=== PATIENT | male | born 1995 | race African-American/Black ===

== ENCOUNTER 2018-04-15 17:05 | Emergency (ER) | payer OTHER ==
[~2018-04-15] VITALS: Ht 180.3 cm; Wt 83.5 kg
[~2018-04-15 17:05] MED LIST: CODE-54 PO; METH4TAB PO; OFLO5DRO7 EACH EAR
[2018-04-15] MEDS ORDERED: KETOROLAC 60 MG/2 ML VIAL IM ONE (17:30)
[2018-04-15] MEDS ORDERED: ORPHENADRINE 60 MG/2 ML (NORFLEX) AMP IM ONE (17:30)
--- NOTE | 2018-04-15 17:49 | ED Back Pain ---
General Chief Complaint: Back Problems Stated Complaint: BACK PAIN POST INJ 03/28 Nursing Triage Note: SUFFERED A FOOTBALL INJURY ON 03/28/18 TO HIS LOWER BACK AND LEFT FLANK. TWO DAYS AGO THE PAIN BEGAN TO WORSEN. REPORTS CONSTANT DULL PAIN Nursing Sepsis Screen: No Definite Risk Source of Information: Patient, Family (mother) Exam Limitations: No Limitations History of Present Illness Date Seen by Provider: Apr 15, 2018 Time Seen by Provider: 17:30 Initial Comments Patient is a 22-year-old male who presents to the emergency room with complaints of a football injury on 03/28/18 to his left lower back causing pain to radiate to his left flank. He reports that 2 days ago the pain became worse. He reports that he has continued to practice since the injury. He denies any saddle paresthesia, numbness or tingling, loss of bowel or bladder. Location: Lumbar Spine Timing/Duration: Other (18 days) Pain/Injury Location: Back Radiation: Other (left flank) Associated Symptoms: muscle spasms; No fever, No weakness, No numbness in legs/ feet, No tingling in legs/feet, No sensory/motor loss; lower back pain; No loss of bladder control, No loss of bowel control Allergies and Home Medications Allergies Coded Allergies: No Known Drug Allergies (Unverified , 05/13/10) Home Medications Cyclobenzaprine HCl 10 Mg Tablet, 10 MG PO Q8H Prescribed by: MANNY MENDOZA on 04/15/18 175 Ofloxacin 5 Ml Drops, 5 ML EACH EAR BID Prescribed by: ALANNA ELLIOTT on 03/11/13 2302 Prednisone 20 Mg Tab, 40 MG PO DAILY Prescribed by: MANNY MENDOZA on 04/15/18 175 Patient Home Medication List Home Medication List Reviewed: Yes Review of Systems Constitutional: see HPI; No chills, No fever Musculoskeletal: see HPI, back pain All Other Systems Reviewed Negative Unless Noted: Yes Past Ydghcpk-Ewxnqj-Kryxiw Hx Past Med/Social Hx: Reviewed Nursing Past Med/Soc Hx Patient Social History Recent Foreign Travel: No Contact w/Someone Who Travel: No Recent Infectious Disease Expo: No Seasonal Allergies Seasonal Allergies: No Past Medical History Surgeries: No Respiratory: No Cardiac: No Neurological: No Sexually Transmitted Disease: No Gastrointestinal: No Musculoskeletal: Yes Back Injury Endocrine: No HEENT: No Cancer: No Psychosocial: No Integumentary: No Blood Disorders: No Family Medical History Reviewed Nursing Family Hx Physical Exam Vital Signs Vital Signs - First Documented 04/15/18 17:10 Temp 97.9 Pulse 67 Resp 20 B/P (MAP) 142/79 (100) Pulse Ox 97 O2 Delivery Room Air Capillary Refill : Less Than 3 Seconds Height, Weight, BMI Height: 5'11.00" Weight: 184lbs. oz. 83.411796pq; BMI Method:Stated General Appearance: No Apparent Distress, WD/WN HEENT: PERRL/EOMI, TMs Normal, Normal ENT Inspection, Pharynx Normal Neck: Full Range of Motion, Normal Inspection, Non Tender, Supple Cardiovascular: Regular Rate, Rhythm, No Edema, No Gallop, No JVD, No Murmur, Normal Peripheral Pulses Respiratory: Chest Non Tender, Lungs Clear, Normal Breath Sounds, No Accessory Muscle Use, No Respiratory Distress, Accessory Muscle Use Back: Normal Inspection, CVA Tenderness (L), Vertebral Tenderness (lumbar) Neurologic/Psychiatric: Alert, Oriented x3, No Motor/Sensory Deficits Skin: Normal Color, Warm/Dry Progress/Results/Core Measures Results/Orders My Orders Orders - REJIMANNY Ketorolac Injection (Toradol Injection) (04/15/18 17:30) Orphenadrine Injection (Norflex Injectio (04/15/18 17:30) Vital Signs/I&O 04/15/18 17:10 Temp 97.9 Pulse 67 Resp 20 B/P (MAP) 142/79 (100) Pulse Ox 97 O2 Delivery Room Air Blood Pressure Mean: 100 Progress Progress Note : Time: 17:26 Progress Note I have seen and evaluated the patient. 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 Huber and he recommends doing an outpatient MRI and having the images sent to him. I did inform the patient and his mother and they agree with plans of care, plans for discharge, return precautions were given. Departure Impression Primary Impression: Back pain Disposition: 01 HOME, SELF-CARE Condition: Stable/Unchanged Departure-Patient Inst. Decision time for Depature: 17:48 Referrals: [facility] (PCP/Family) Primary Care Physician Patient Instructions: Lumbar Muscle Strain (DC), Low Back Pain (DC) Add. Discharge Instructions: Take medications as directed. Call first thing Monday to schedule your appointment for your MRI. He may use ibuprofen and Tylenol as directed by the bottle for pain. Follow-up with Dr. Huber within 1 week for recheck. Follow-up with your primary care provider within 1 week for recheck. Do not play sports until cleared by Dr. Huber. All discharge instructions reviewed with patient and/or family. Voiced understanding. Scripts Prednisone (Prednisone) 20 Mg Tab 40 MG PO DAILY for 4 Days, #8 TAB Prov: MANNY MENDOZA 04/15/18 Cyclobenzaprine HCl (Cyclobenzaprine HCl) 10 Mg Tablet 10 MG PO Q8H, #14 TAB Prov: MANNY MENDOZA 04/15/18 MANNY MENDOZA Apr 15, 2018 17:49
[2018-04-15] MEDS ORDERED: PRD20T PO (17:51)
[2018-04-15] MEDS ORDERED: CYCL10TA9 PO (17:51)
[2018-04-15 18:29] VITALS: BP 139/82
== END 2018-04-15 18:29 | disposition home or self-care (01) ==
LOC: EDUNIT# 17:05 → ER 17:06
DX: M54.5 Low back pain (principal); Z79.52 Long term (current) use of systemic steroids; W03.XXXA Other fall on same level due to collision with another person, initial encounter; Y93.61 Activity, american tackle football
CPT/HCPCS: 96372; 99281; 99284

== ENCOUNTER → 2018-04-20 | Outpatient (CLI) | payer OTHER ==
[~2018-04-20] MED LIST changes: +CYCL10TA9 PO; +PRD20T PO
--- NOTE | 2018-04-20 09:28 | Diagnostic Imaging Report ---
CLINICAL INDICATION: Patient with football injury from 03/28/2018. Patient has left lower back pain since. Patient made a tackle and hit left lower back on a helmet. EXAMINATION: MRI of the lumbar spine performed without IV contrast. Sagittal T2, sagittal T1, sagittal stir, and axial T2. COMPARISON: None. FINDINGS: Five lumbar type vertebra are identified. Lumbar spine has normal alignment with no fracture or dislocation. The lumbar vertebra have normal T1 and T2 signal. The visualized portions of the distal spinal cord, conus medullaris, and cauda equina have normal anatomic appearance. The conus medullaris tip is seen at the T12-L1 intervertebral level. There is a small amount of high T2 signal within the posterior aspect of left psoas muscle seen at the L4 and L5 levels, best seen on the axial T2 sequence. Otherwise there is no other significant paraspinal soft tissue abnormality. There are chronic Schmorl's nodes seen involving the L1-L2 and L2-L3 levels. T12-L1: There is a small right paracentral disc protrusion/herniation which causes minimal impression upon the thecal sac. There is mild right neural foramen narrowing. L1-L2: There is a subtle left paracentral disc bulge. L2-L3: There is a subtle left paracentral disc bulge. There is mild loss of intervertebral disc height. L3-L4: There is a small disc bulge in the far right lateral region. L4-L5: Unremarkable. L5-S1: There is a small to moderate-sized broad posterior disc protrusion/herniation and moderate loss of intervertebral disc height. There are low T2 degenerative disc signal changes. There are disc spurs extending into the right foraminal region causing [id number] right neural foramen narrowing. There is no significant central canal narrowing. There is concern for possible impingement upon the non-exited left S1 nerve root more so than the right S1 nerve root. IMPRESSION: 1: There is L5-S1 small to moderate-sized broad posterior disc herniation with right subarticular disc spurs. There is associated [id number] right neural foramen narrowing and concern for impingement upon the bilateral non-exiting S1 nerve roots (left side more than the right). 2: There is a small T12-L1 right paracentral disc herniation which causes minimal impression upon the thecal sac and mild right neural foramen narrowing. 3: There are small disc bulges at the L1-L2, L2-L3, and L3-L4 levels, as described above. 4: There is a small area of high T2 signal within the posterior left psoas muscle involving the lower lumbar spine, as described above. This may represent muscle strain/injury. Dictated by: Dictated on workstation # [id number]
== END ==
LOC: RAD 08:01
PROVIDERS: ATTEND Nurse Practitioner
DX: S39.92XA Unspecified injury of lower back, initial encounter (principal); T14.8XXA Other injury of unspecified body region, initial encounter; M99.73 Connective tissue and disc stenosis of intervertebral foramina of lumbar region; M51.25 Other intervertebral disc displacement, thoracolumbar region; M99.72 Connective tissue and disc stenosis of intervertebral foramina of thoracic region; M51.37 Other intervertebral disc degeneration, lumbosacral region; M51.46 Schmorl's nodes, lumbar region; M51.27 Other intervertebral disc displacement, lumbosacral region; W21.89XA Striking against or struck by other sports equipment, initial encounter; Y93.61 Activity, american tackle football
CPT/HCPCS: 72148